=== PATIENT | female | born 1935 | race Caucasian/White ===

== ENCOUNTER → 2017-03-03 | Outpatient (CLI) | payer MEDICARE ==
--- NOTE | 2017-03-03 16:13 | REP ---
RIGHT HIP, TWO VIEWS: HISTORY: Right leg pain. COMPARISON: 11/11/2012 There is no acute fracture or dislocation. There is narrowing of the joint space. Calcifications are present lateral to the greater trochanter. This represents ligamentous or tendon calcification. IMPRESSION: Degenerative change as described above.
--- NOTE | 2017-03-03 16:25 | REP ---
LUMBAR SPINE, EIGHT VIEWS: HISTORY: Right leg pain. There is no acute fracture. The intervertebral discs are decreased in height. Vacuum phenomenon is present at the L2-3, L3-4 and L5-S1 levels. These findings are consistent with disc degeneration. Osteophytes are present throughout the lumbar spine. There is narrowing of the lumbar facet joints. There are 8 mm of grade 1 spondylolisthesis of L5 on S1. This is unchanged with flexion and extension. IMPRESSION: Degenerative change as described above.
== END ==
LOC: M CLY 14:35
PROVIDERS: ATTEND Family Medicine
DX: M25.78 Osteophyte, vertebrae (principal); M51.36 Other intervertebral disc degeneration, lumbar region; M16.11 Unilateral primary osteoarthritis, right hip

== ENCOUNTER → 2017-03-03 | Outpatient (REF) | payer MEDICARE ==
[2017-03-04 12:02] LABS: ALBUMIN 3.8 GM/DL (3.2-5.2); ALBUMIN/GLOBULIN RATIO 1.19 (1.00-1.93); ALKALINE PHOSPHATASE 24 U/L (45-117); ALT/SGPT 23 U/L (12-78); ANION GAP 5 MEQ/L (8-16); AST/SGOT 17 U/L (15-37); BILIRUBIN,TOTAL 0.5 MG/DL (0.2-1.0); BLOOD UREA NITROGEN 18 MG/DL (7-18); CARBON DIOXIDE LEVEL 30 MEQ/L (21-32); CHLORIDE LEVEL 103 MEQ/L (98-107); CREATININE FOR GFR 0.66 MG/DL (0.55-1.02); GLOMERULAR FILTRATION RATE > 60.0 (>32); GLUCOSE, FASTING 77 MG/DL (83-110); POTASSIUM SERUM 4.1 MEQ/L (3.5-5.1); SODIUM LEVEL 138 MEQ/L (136-145)
[2017-03-04 14:24] LABS: MEAN CORPUSCULAR HEMOGLOBIN 54.2 pg (27.0-33.0); WHITE BLOOD COUNT 4.8 K/mm3 (4.0-10.0)
[2017-03-04 14:25] LABS: RED CELL DISTRIBUTION WIDTH 24.9 % (11.5-14.5)
[2017-03-04 14:33] LABS: MEAN CORPUSCULAR HGB CONC 53.4 g/dl (32.0-36.5)
[2017-03-04 14:34] LABS: MEAN CORPUSCULAR VOLUME 101.3 fl (80.0-96.0)
== END ==
LOC: M SFHCCLAY 14:05
PROVIDERS: ATTEND Family Medicine
DX: M79.604 Pain in right leg (principal)

== ENCOUNTER → 2017-03-05 | Outpatient (REF) | payer MEDICARE | LOC: M SFHCCLAY 12:46 | PROVIDERS: ATTEND Family Medicine | DX: R04.0 Epistaxis (principal); G47.33 Obstructive sleep apnea (adult) (pediatric); I10 Essential (primary) hypertension; M79.604 Pain in right leg ==

== ENCOUNTER → 2017-03-25 | Outpatient (REF) | payer MEDICARE ==
[2017-03-25 17:15] LABS: FOLATE > 24.0 NG/ML (>5.4); VITAMIN B12 LEVEL 637 PG/ML (247-911)
[2017-03-25 18:59] LABS: RETIC HEMOGLOBIN CONTENT CHr 38.9 PG (24-36); RETICULOCYTE % ADVIA2120 4.2 % (0.5-1.5)
== END ==
LOC: M SFHCCLAY 11:23
PROVIDERS: ATTEND Family Medicine
DX: D53.9 Nutritional anemia, unspecified (principal)

== ENCOUNTER → 2017-04-13 | Outpatient (CLI) | payer MEDICARE ==
--- NOTE | 2017-04-13 16:04 | REP ---
MR BRAIN WITHOUT CONTRAST: HISTORY: Infarction. Areas of increased signal intensity on T2 weighted images are present in the periventricular and subcortical white matter and omar. This represents small vessel ischemic disease. Several punctate areas of decreased signal intensity on T2 gradient echo images are present in the frontal lobes. 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 There is no acute intraparenchymal hemorrhage, infarct mass, or midline shift. The ventricular system and cortical sulci are dilated consistent with mild volume loss. There is no extracerebral collection. The sinuses are clear. IMPRESSION:1. Small vessel ischemic disease. 2. Mild volume loss. Signed by Gilbert Jeffries MD 04/13/2017 04:15 P
== END ==
LOC: M RAD 14:41
PROVIDERS: ATTEND Family Medicine
DX: I63.9 Cerebral infarction, unspecified (principal); I25.9 Chronic ischemic heart disease, unspecified

== ENCOUNTER → 2017-05-21 | Outpatient (REF) | payer MEDICARE | LOC: M SFHCCLAY 11:46 | PROVIDERS: ATTEND Nurse Practitioner Family | DX: N39.0 Urinary tract infection, site not specified (principal) ==

== ENCOUNTER → 2017-06-17 | Outpatient (REF) | payer MEDICARE ==
[2017-06-17 19:17] LABS: ALBUMIN/GLOBULIN RATIO 1.25 (1.00-1.93); ALKALINE PHOSPHATASE 24 U/L (45-117); ALT/SGPT 30 U/L (12-78); ANION GAP 7 MEQ/L (8-16); AST/SGOT 21 U/L (15-37); BILIRUBIN,TOTAL 0.6 MG/DL (0.2-1.0); BLOOD UREA NITROGEN 17 MG/DL (7-18); CALCIUM LEVEL 9.4 MG/DL (8.8-10.2); CARBON DIOXIDE LEVEL 30 MEQ/L (21-32); CHLORIDE LEVEL 104 MEQ/L (98-107); CREATININE FOR GFR 0.61 MG/DL (0.55-1.02); GLOMERULAR FILTRATION RATE > 60.0 (>32); GLUCOSE, FASTING 92 MG/DL (83-110); POTASSIUM SERUM 3.9 MEQ/L (3.5-5.1); SODIUM LEVEL 141 MEQ/L (136-145); TOTAL PROTEIN 7.2 GM/DL (6.4-8.2)
[2017-06-17 19:18] LABS: FOLATE > 24.0 NG/ML (>5.4); VITAMIN B12 LEVEL 703 PG/ML (247-911)
[2017-06-17 21:18] LABS: WHITE BLOOD COUNT 5.2 K/mm3 (4.0-10.0)
[2017-06-17 21:19] LABS: MEAN CORPUSCULAR HEMOGLOBIN 31.5 pg (27.0-33.0); MEAN CORPUSCULAR HGB CONC 32.3 g/dl (32.0-36.5); MEAN CORPUSCULAR VOLUME 97.7 fl (80.0-96.0); RED CELL DISTRIBUTION WIDTH 14.2 % (11.5-14.5)
[2017-06-21 00:06] LABS: Lyme Disease IgG/IgM Antibodie <0.91 ISR (0.00-0.90); Lyme Disease IgM Ab Quantitati <0.80 index (0.00-0.79)
== END ==
LOC: M SFHCCLAY 12:22
PROVIDERS: ATTEND Family Medicine
DX: G50.0 Trigeminal neuralgia (principal); D75.89 Other specified diseases of blood and blood-forming organs

== ENCOUNTER → 2017-06-29 | Outpatient (REF) | payer MEDICARE ==
[2017-06-29 22:02] LABS: T UPTAKE 35 % (30-39); THYROXINE (T4) 8.1 UG/DL (4.5-12.0); TOTAL PROTEIN 6.8 GM/DL (6.4-8.2)
[2017-06-30 12:54] LABS: ALBUMIN 4.04 GM/DL (3.29-5.55); ALBUMIN % 59.4 % (55.8-66.1); GAMMA GLOBULIN % 13.6 % (11.1-18.8)
[2017-07-03 08:24] LABS: VITAMIN E LEVEL 15.7 mg/L (6.5-21.5)
== END ==
LOC: M LABDRAWC 16:31
PROVIDERS: ATTEND Psychiatry & Neurology Neurology
DX: R20.2 Paresthesia of skin (principal); Z13.1 Encounter for screening for diabetes mellitus

== ENCOUNTER → 2018-02-04 | Outpatient (REF) | payer MEDICARE | LOC: M SFHCCLAY 10:38 | DX: N39.0 Urinary tract infection, site not specified (principal) | CPT/HCPCS: 87186 ==

== ENCOUNTER → 2018-02-22 | Outpatient (REF) | payer MEDICARE ==
[2018-02-22 12:14] LABS: ALBUMIN 3.8 GM/DL (3.2-5.2); ALBUMIN/GLOBULIN RATIO 1.23 (1.00-1.93); ALKALINE PHOSPHATASE 23 U/L (45-117); ALT/SGPT 22 U/L (12-78); ANION GAP 6 MEQ/L (8-16); AST/SGOT 18 U/L (7-37); BILIRUBIN,TOTAL 0.6 MG/DL (0.2-1.0); BLOOD UREA NITROGEN 26 MG/DL (7-18); CALCIUM LEVEL 9.2 MG/DL (8.8-10.2); CARBON DIOXIDE LEVEL 31 MEQ/L (21-32); CHLORIDE LEVEL 106 MEQ/L (98-107); CREATININE FOR GFR 0.73 MG/DL (0.55-1.30); GLOMERULAR FILTRATION RATE > 60.0 (>32); GLUCOSE, FASTING 87 MG/DL (70-100); MAGNESIUM LEVEL 2.3 MG/DL (1.8-2.4); POTASSIUM SERUM 4.1 MEQ/L (3.5-5.1); SODIUM LEVEL 143 MEQ/L (136-145); TOTAL PROTEIN 6.9 GM/DL (6.4-8.2)
[2018-02-22 12:28] LABS: HEMATOCRIT 34.1 % (36.0-47.0); MEAN CORPUSCULAR HEMOGLOBIN 30.9 pg (27.0-33.0); MEAN CORPUSCULAR HGB CONC 32.3 g/dl (32.0-36.5); MEAN CORPUSCULAR VOLUME 95.8 fl (80.0-96.0); PLATELET COUNT, AUTOMATED 222 10^3/uL (150-450); RED BLOOD COUNT 3.56 10^6/uL (4.00-5.40); RED CELL DISTRIBUTION WIDTH 13.8 % (11.5-14.5); WHITE BLOOD COUNT 5.4 10^3/uL (4.0-10.0)
[2018-02-26 00:10] LABS: VITAMIN B6,PYRIDOXAL PHOSPHATE 44.9 ug/L (2.0-32.8)
== END ==
LOC: M SFHCCLAY 09:42
DX: I10 Essential (primary) hypertension (principal); G63 Polyneuropathy in diseases classified elsewhere; E53.8 Deficiency of other specified B group vitamins; I47.1 Supraventricular tachycardia
CPT/HCPCS: 83735

== ENCOUNTER → 2018-04-20 | Outpatient (REF) | payer MEDICARE | LOC: M SFHCCLAY 14:35 | DX: R00.2 Palpitations (principal); Z53.8 Procedure and treatment not carried out for other reasons ==

== ENCOUNTER → 2018-04-23 | Outpatient (REF) | payer MEDICARE ==
[2018-04-23 12:07] LABS: FREE T4 0.92 NG/DL (0.76-1.46)
== END ==
LOC: M SFHCCLAY 09:47
DX: R00.2 Palpitations (principal)
CPT/HCPCS: 84443

== ENCOUNTER → 2018-07-07 | Outpatient (REF) | payer MEDICARE ==
[2018-07-07 12:52] LABS: BASO # 0.1 10^3/uL (0.0-0.2); BASO % 1.3 % (0.0-1.0); EOS # 0.4 10^3/uL (0.0-0.50); EOS % 5.8 % (0.0-3.0); HEMATOCRIT 34.9 % (36.0-47.0); HEMOGLOBIN 11.6 g/dl (12.0-15.5); IMMATURE GRANULOCYTE % 0.3 % (0-3.0); LYMPH # 1.9 10^3/uL (1.5-4.5); LYMPH % 30.5 % (24.0-44.0); MEAN CORPUSCULAR HEMOGLOBIN 31.4 pg (27.0-33.0); MEAN CORPUSCULAR HGB CONC 33.2 g/dl (32.0-36.5); MEAN CORPUSCULAR VOLUME 94.6 fl (80.0-96.0); MONO # 0.6 10^3/uL (0.0-0.8); MONO % 9.6 % (0.0-5.0); NEUTROPHILS # 3.2 10^3/uL (1.8-7.7); NEUTROPHILS % 52.5 % (36.0-66.0); PLATELET COUNT, AUTOMATED 200 10^3/uL (150-450); RED BLOOD COUNT 3.69 10^6/uL (4.00-5.40); RED CELL DISTRIBUTION WIDTH 14.3 % (11.5-14.5); WHITE BLOOD COUNT 6.1 10^3/uL (4.0-10.0)
[2018-07-07 13:26] LABS: ALBUMIN 3.6 GM/DL (3.2-5.2); ALBUMIN/GLOBULIN RATIO 1.06 (1.00-1.93); ALKALINE PHOSPHATASE 24 U/L (45-117); ALT/SGPT 22 U/L (12-78); ANION GAP 10 MEQ/L (8-16); AST/SGOT 21 U/L (7-37); BILIRUBIN,TOTAL 0.7 MG/DL (0.2-1.0); BLOOD UREA NITROGEN 17 MG/DL (7-18); CALCIUM LEVEL 8.9 MG/DL (8.8-10.2); CARBON DIOXIDE LEVEL 27 MEQ/L (21-32); CHLORIDE LEVEL 105 MEQ/L (98-107); CREATININE FOR GFR 0.74 MG/DL (0.55-1.30); GLOMERULAR FILTRATION RATE > 60.0 (>32); GLUCOSE, FASTING 90 MG/DL (70-100); POTASSIUM SERUM 3.8 MEQ/L (3.5-5.1); SODIUM LEVEL 142 MEQ/L (136-145)
== END ==
LOC: M SFHCCLAY 09:22
DX: D64.9 Anemia, unspecified (principal); I47.1 Supraventricular tachycardia; E83.42 Hypomagnesemia
CPT/HCPCS: 83735

== ENCOUNTER → 2018-09-01 | Outpatient (REF) | payer MEDICARE ==
[2018-09-01 17:01] LABS: APPEARANCE, URINE CLEAR (CLEAR); BACTERIA, URINE AUTO NEGATIVE (NEGATIVE); BILIRUBIN, URINE AUTO NEGATIVE (NEGATIVE); BLOOD, URINE BLOOD NEGATIVE (NEGATIVE); COLOR, URINE YELLOW (YELLOW); GLUCOSE, URINE (UA) AUTO NEGATIVE (NEGATIVE); KETONE, URINE AUTO NEGATIVE (NEGATIVE); LEUKOCYTE ESTERASE, URINE AUTO 2+ (NEGATIVE); MUCUS, URINE SMALL (NEGATIVE); NITRITE, URINE AUTO NEGATIVE (NEGATIVE); PROTEIN, URINE AUTO NEGATIVE (NEGATIVE); RBC, URINE AUTO 6 /HPF (0-3); SPECIFIC GRAVITY URINE AUTO 1.029 (1.002-1.035); SQUAMOUS EPITHELIAL CELL UR AU 1 /HPF (0-6); WBC, URINE AUTO 3 /HPF (0-3)
== END ==
LOC: M LAB REF 16:06
DX: N39.46 Mixed incontinence (principal); R35.0 Frequency of micturition
CPT/HCPCS: 81001

== ENCOUNTER → 2019-02-17 | Outpatient (REF) | payer MEDICARE ==
[2019-02-17 17:13] LABS: BLOOD UREA NITROGEN 23 MG/DL (7-18); CALCIUM LEVEL 9.8 MG/DL (8.8-10.2); CARBON DIOXIDE LEVEL 29 MEQ/L (21-32); CHLORIDE LEVEL 106 MEQ/L (98-107); CHOLESTEROL LEVEL 159 MG/DL (<200); CHOLESTEROL RISK RATIO 1.786 (<5); CREATININE FOR GFR 0.79 MG/DL (0.55-1.30); GLOMERULAR FILTRATION RATE > 60.0 (>32); GLUCOSE, FASTING 92 MG/DL (70-100); HDL CHOLESTEROL 89 MG/DL (>40); LDL CHOLESTEROL 59 MG/DL (<100); NON-HDL-C 70 MG/DL; POTASSIUM SERUM 3.6 MEQ/L (3.5-5.1); SODIUM LEVEL 142 MEQ/L (136-145); TRIGLYCERIDES LEVEL 53 MG/DL (<150)
[2019-02-17 17:42] LABS: BASO # 0.1 10^3/uL (0.0-0.2); BASO % 1.5 % (0.0-1.0); EOS # 0.4 10^3/uL (0.0-0.50); EOS % 6.9 % (0.0-3.0); HEMATOCRIT 36.2 % (36.0-47.0); HEMOGLOBIN 11.9 g/dl (12.0-15.5); LYMPH # 2.1 10^3/uL (1.5-4.5); LYMPH % 39.3 % (24.0-44.0); MEAN CORPUSCULAR VOLUME 97.3 fl (80.0-96.0); MONO # 0.5 10^3/uL (0.0-0.8); NEUTROPHILS # 2.3 10^3/uL (1.8-7.7); NEUTROPHILS % 43.1 % (36.0-66.0); PLATELET COUNT, AUTOMATED 214 10^3/uL (150-450); RED BLOOD COUNT 3.72 10^6/uL (4.00-5.40); WHITE BLOOD COUNT 5.3 10^3/uL (4.0-10.0)
[2019-02-17 17:46] LABS: MEAN CORPUSCULAR HGB CONC 32.9 g/dl (32.0-36.5)
== END ==
LOC: M SFHCCLAY 10:23
PROVIDERS: ATTEND Family Medicine
DX: E78.6 Lipoprotein deficiency (principal); I10 Essential (primary) hypertension; E83.42 Hypomagnesemia; D64.9 Anemia, unspecified

== ENCOUNTER → 2019-07-20 | Outpatient (REF) | payer MEDICARE ==
[2019-07-20 16:55] LABS: ALBUMIN 3.8 GM/DL (3.2-5.2); ALT/SGPT 20 U/L (12-78); BILIRUBIN,TOTAL 0.6 MG/DL (0.2-1.0); BLOOD UREA NITROGEN 18 MG/DL (7-18); CALCIUM LEVEL 9.5 MG/DL (8.8-10.2); CARBON DIOXIDE LEVEL 31 MEQ/L (21-32); CHLORIDE LEVEL 102 MEQ/L (98-107); CREATININE FOR GFR 0.72 MG/DL (0.55-1.30); GLOMERULAR FILTRATION RATE > 60.0 (>32); GLUCOSE, FASTING 90 MG/DL (70-100); POTASSIUM SERUM 3.8 MEQ/L (3.5-5.1); SODIUM LEVEL 139 MEQ/L (136-145)
[2019-07-20 17:58] LABS: BASO # 0.1 10^3/uL (0.0-0.2); BASO % 1.1 % (0.0-1.0); EOS # 0.4 10^3/uL (0.0-0.5); EOS % 5.7 % (0.0-3.0); HEMATOCRIT 36.1 % (36.0-47.0); HEMOGLOBIN 11.7 g/dl (12.0-15.5); LYMPH # 1.8 10^3/uL (1.5-5.0); LYMPH % 27.9 % (24.0-44.0); MEAN CORPUSCULAR HEMOGLOBIN 31.5 pg (27.0-33.0); MEAN CORPUSCULAR HGB CONC 32.4 g/dl (32.0-36.5); MONO # 0.6 10^3/uL (0.0-0.8); NEUTROPHILS # 3.7 10^3/uL (1.5-8.5); PLATELET COUNT, AUTOMATED 204 10^3/uL (150-450); RED BLOOD COUNT 3.72 10^6/uL (4.00-5.40); WHITE BLOOD COUNT 6.5 10^3/uL (4.0-10.0)
== END ==
LOC: M SFHCCLAY 11:43
PROVIDERS: ATTEND Family Medicine
DX: D75.89 Other specified diseases of blood and blood-forming organs (principal); I47.1 Supraventricular tachycardia

== ENCOUNTER → 2019-09-27 | Outpatient (REF) | payer MEDICARE ==
[2019-09-27 13:29] LABS: HEMATOCRIT 35.3 % (36.0-47.0); HEMOGLOBIN 11.2 g/dl (12.0-15.5); MEAN CORPUSCULAR HEMOGLOBIN 31.1 pg (27.0-33.0); MEAN CORPUSCULAR HGB CONC 31.7 g/dl (32.0-36.5); MEAN CORPUSCULAR VOLUME 98.1 fl (80.0-96.0); PLATELET COUNT, AUTOMATED 186 10^3/uL (150-450); WHITE BLOOD COUNT 5.8 10^3/uL (4.0-10.0)
== END ==
LOC: M LABDRAWC 12:01 → M LRY 12:01
PROVIDERS: ATTEND Physician Assistant
DX: I48.0 Paroxysmal atrial fibrillation (principal)

== ENCOUNTER → 2020-03-07 | Outpatient (REF) | payer MEDICARE ==
[2020-03-07 12:40] LABS: ALBUMIN 3.5 GM/DL (3.2-5.2); ALT/SGPT 21 U/L (12-78); BILIRUBIN,TOTAL 0.4 MG/DL (0.2-1.0); BLOOD UREA NITROGEN 22 MG/DL (7-18); CALCIUM LEVEL 8.9 MG/DL (8.8-10.2); CARBON DIOXIDE LEVEL 29 MEQ/L (21-32); CHLORIDE LEVEL 108 MEQ/L (98-107); CHOLESTEROL LEVEL 133 MG/DL (<200); CHOLESTEROL RISK RATIO 1.477 (<5); CREATININE FOR GFR 0.69 MG/DL (0.55-1.30); FREE T3 2.6 PG/ML (2.2-4.0); FREE T4 0.93 NG/DL (0.76-1.46); GLOMERULAR FILTRATION RATE > 60.0 (>32); GLUCOSE, FASTING 92 MG/DL (70-100); HDL CHOLESTEROL 90 MG/DL (>40); LDL CHOLESTEROL 36 MG/DL (<100); NON-HDL-C 43 MG/DL; POTASSIUM SERUM 4.4 MEQ/L (3.5-5.1); SODIUM LEVEL 143 MEQ/L (136-145); TOTAL PROTEIN 6.8 GM/DL (6.4-8.2); TRIGLYCERIDES LEVEL 37 MG/DL (<150)
== END ==
LOC: M SFHCCLAY 09:14
PROVIDERS: ATTEND Family Medicine
DX: G47.33 Obstructive sleep apnea (adult) (pediatric) (principal); I10 Essential (primary) hypertension; I48.0 Paroxysmal atrial fibrillation

== ENCOUNTER → 2021-01-17 | Outpatient (REF) | payer MEDICARE ==
[2021-01-17 18:23] LABS: BASO # 0.1 10^3/uL (0.0-0.2); BASO % 1.1 % (0.0-1.0); EOS # 0.3 10^3/uL (0.0-0.5); HEMATOCRIT 35.3 % (36.0-47.0); HEMOGLOBIN 11.4 g/dl (12.0-15.5); LYMPH % 30.4 % (24.0-44.0); MEAN CORPUSCULAR HEMOGLOBIN 31.8 pg (27.0-33.0); MEAN CORPUSCULAR HGB CONC 32.3 g/dl (32.0-36.5); MEAN CORPUSCULAR VOLUME 98.6 fl (80.0-96.0); MONO # 0.7 10^3/uL (0.0-0.8); NEUTROPHILS # 3.5 10^3/uL (1.5-8.5); NEUTROPHILS % 53.2 % (36.0-66.0); PLATELET COUNT, AUTOMATED 199 10^3/uL (150-450); RED BLOOD COUNT 3.58 10^6/uL (4.00-5.40)
[2021-01-17 18:33] LABS: WHITE BLOOD COUNT 6.6 10^3/uL (4.0-10.0)
[2021-01-17 20:34] LABS: BLOOD UREA NITROGEN 25 MG/DL (7-18); CALCIUM LEVEL 9.3 MG/DL (8.8-10.2); CARBON DIOXIDE LEVEL 30 MEQ/L (21-32); CHLORIDE LEVEL 107 MEQ/L (98-107); CREATININE FOR GFR 0.76 MG/DL (0.55-1.30); GLOMERULAR FILTRATION RATE > 60.0 (>32); GLUCOSE, FASTING 89 MG/DL (70-100); LDH LACTATE DEHYDROGENASE 198 U/L (84-246); POTASSIUM SERUM 4.3 MEQ/L (3.5-5.1); SODIUM LEVEL 142 MEQ/L (136-145)
== END ==
LOC: M SFHCCLAY 13:49
PROVIDERS: ATTEND Family Medicine
DX: D53.9 Nutritional anemia, unspecified (principal); I10 Essential (primary) hypertension; I48.91 Unspecified atrial fibrillation

== ENCOUNTER → 2021-04-24 | Outpatient (REF) | payer MEDICARE | LOC: M SFHCCLAY 14:11 | PROVIDERS: ATTEND Physician Assistant | DX: N39.0 Urinary tract infection, site not specified (principal) ==

== ENCOUNTER → 2021-06-25 | Outpatient (CLI) | payer MEDICARE ==
--- NOTE | 2021-06-25 11:39 | REP ---
INDICATION: SCIATICA RT SIDE COMPARISON: 03/03/2017. TECHNIQUE: Two views right hip. FINDINGS: There is no evidence of acute fracture, dislocation, or intrinsic bone disease.There is stable moderate degenerative change at the hip joint, with joint space narrowing, subchondral sclerosis and spurring. IMPRESSION: Stable moderate degenerative changes right hip joint. <Electronically signed by Phillip Dale > 06/25/21 [id number]
--- NOTE | 2021-06-25 12:09 | REP ---
INDICATION: SCIATICA RT SIDE. COMPARISON: 03/03/2017. TECHNIQUE: Five views lumbosacral spine. FINDINGS: There is no acute compression fracture. There is stable minimal retrolisthesis of L2 on L3 and anterolisthesis of L4 on L5 and L5 on S1. There is moderate diffuse spurring. There is moderate disc space narrowing at all levels with subchondral sclerosis, and vacuum phenomenon at L2-3 and L5-S1. Sclerosis and spurring is seen at the posterior facet joints. Posterior elements are intact. There is mild curvature toward the right. IMPRESSION: Stable degenerative changes as discussed above. <Electronically signed by Phillip Dale > 06/25/21 [id number]
== END ==
LOC: M CLY 10:44
PROVIDERS: ATTEND Family Medicine
DX: M54.31 Sciatica, right side (principal); M16.11 Unilateral primary osteoarthritis, right hip; M46.06 Spinal enthesopathy, lumbar region; M51.37 Other intervertebral disc degeneration, lumbosacral region

== ENCOUNTER → 2021-09-02 | Outpatient (REF) | payer MEDICARE ==
[2021-09-02 16:42] LABS: HEMATOCRIT 36.6 % (36.0-47.0); HEMOGLOBIN 11.7 g/dl (12.0-15.5); MEAN CORPUSCULAR HEMOGLOBIN 30.6 pg (27.0-33.0); MEAN CORPUSCULAR VOLUME 95.8 fl (80.0-96.0); PLATELET COUNT, AUTOMATED 263 10^3/uL (150-450); RED BLOOD COUNT 3.82 10^6/uL (4.00-5.40); WHITE BLOOD COUNT 6.6 10^3/uL (4.0-10.0)
[2021-09-02 16:46] LABS: ALBUMIN 3.5 GM/DL (3.2-5.2); ALT/SGPT 19 U/L (12-78); BILIRUBIN,TOTAL 0.5 MG/DL (0.2-1.0); BLOOD UREA NITROGEN 20 MG/DL (7-18); CALCIUM LEVEL 9.3 MG/DL (8.8-10.2); CARBON DIOXIDE LEVEL 31 MEQ/L (21-32); CHLORIDE LEVEL 109 MEQ/L (98-107); CREATININE FOR GFR 0.77 MG/DL (0.55-1.30); GLOMERULAR FILTRATION RATE > 60.0 (>32); GLUCOSE, FASTING 95 MG/DL (70-100); POTASSIUM SERUM 4.1 MEQ/L (3.5-5.1); SODIUM LEVEL 145 MEQ/L (136-145); TOTAL PROTEIN 6.7 GM/DL (6.4-8.2)
== END ==
LOC: M SFHCCLAY 10:00
PROVIDERS: ATTEND Family Medicine
DX: M11.20 Other chondrocalcinosis, unspecified site (principal); I10 Essential (primary) hypertension

== ENCOUNTER → 2022-04-04 | Outpatient (REF) | payer MEDICARE ==
[2022-04-04 18:45] LABS: BLOOD UREA NITROGEN 20 MG/DL (7-18); CALCIUM LEVEL 9.6 MG/DL (8.8-10.2); CARBON DIOXIDE LEVEL 34 MEQ/L (21-32); CHLORIDE LEVEL 105 MEQ/L (98-107); CREATININE FOR GFR 0.86 MG/DL (0.55-1.30); GLOMERULAR FILTRATION RATE > 60.0 (>32); GLUCOSE, FASTING 95 MG/DL (70-100); HEMOGLOBIN 10.6 g/dl (12.0-15.5); MEAN CORPUSCULAR HEMOGLOBIN 30.9 pg (27.0-33.0); MEAN CORPUSCULAR HGB CONC 32.1 g/dl (32.0-36.5); MEAN CORPUSCULAR VOLUME 96.2 fl (80.0-96.0); PLATELET COUNT, AUTOMATED 305 10^3/uL (150-450); POTASSIUM SERUM 4.3 MEQ/L (3.5-5.1); RED BLOOD COUNT 3.43 10^6/uL (4.00-5.40); SODIUM LEVEL 141 MEQ/L (136-145); WHITE BLOOD COUNT 6.3 10^3/uL (4.0-10.0)
== END ==
LOC: M SFHCCLAY 14:03
PROVIDERS: ATTEND Family Medicine
DX: E87.1 Hypo-osmolality and hyponatremia (principal); I47.1 Supraventricular tachycardia; I10 Essential (primary) hypertension

== ENCOUNTER → 2022-04-05 | Outpatient (REF) | payer MEDICARE | LOC: M SFHCCLAY 09:18 | PROVIDERS: ATTEND Family Medicine | DX: D64.9 Anemia, unspecified (principal); Z53.9 Procedure and treatment not carried out, unspecified reason ==

== ENCOUNTER → 2022-09-17 | Outpatient (REF) | payer MEDICARE | LOC: M SFHCPLAZ 10:48 | PROVIDERS: ATTEND Family Medicine | DX: N30.90 Cystitis, unspecified without hematuria (principal) ==

== ENCOUNTER → 2023-02-02 | Outpatient (REF) ==
[2023-02-02 12:07] LABS: BLOOD UREA NITROGEN 16 MG/DL (9-23); CARBON DIOXIDE LEVEL 34 MMOL/L (20-31); CHLORIDE LEVEL 102 MMOL/L (98-107); CREATININE FOR GFR 0.69 MG/DL (0.55-1.30); GLOMERULAR FILTRATION RATE > 60.0 (>32); GLUCOSE, FASTING 102 MG/DL (74-106); POTASSIUM SERUM 3.5 MMOL/L (3.5-5.1); SODIUM LEVEL 141 MMOL/L (136-145)
[2023-02-02 12:34] LABS: HEMATOCRIT 36.1 % (36.0-47.0); HEMOGLOBIN 11.7 g/dl (12.0-15.5); MEAN CORPUSCULAR HGB CONC 32.4 g/dl (32.0-36.5); MEAN CORPUSCULAR VOLUME 95.5 fl (80.0-96.0); PLATELET COUNT, AUTOMATED 329 10^3/uL (150-450); RED BLOOD COUNT 3.78 10^6/uL (4.00-5.40); WHITE BLOOD COUNT 7.3 10^3/uL (4.0-10.0)
== END ==
PROVIDERS: ATTEND Physician Assistant
DX: S72.90XD Unspecified fracture of unspecified femur, subsequent encounter for closed fracture with routine healing (principal)

== ENCOUNTER → 2023-02-09 | Outpatient (REF) ==
[2023-02-09 11:46] LABS: BLOOD UREA NITROGEN 12 MG/DL (9-23); CARBON DIOXIDE LEVEL 30 MMOL/L (20-31); CHLORIDE LEVEL 103 MMOL/L (98-107); CREATININE FOR GFR 0.63 MG/DL (0.55-1.30); GLOMERULAR FILTRATION RATE > 60.0 (>32); GLUCOSE, FASTING 100 MG/DL (74-106); POTASSIUM SERUM 3.1 MMOL/L (3.5-5.1); SODIUM LEVEL 138 MMOL/L (136-145)
[2023-02-09 12:23] LABS: HEMATOCRIT 35.7 % (36.0-47.0); HEMOGLOBIN 11.5 g/dl (12.0-15.5); MEAN CORPUSCULAR HEMOGLOBIN 30.8 pg (27.0-33.0); MEAN CORPUSCULAR HGB CONC 32.2 g/dl (32.0-36.5); MEAN CORPUSCULAR VOLUME 95.7 fl (80.0-96.0); PLATELET COUNT, AUTOMATED 274 10^3/uL (150-450); RED BLOOD COUNT 3.73 10^6/uL (4.00-5.40); WHITE BLOOD COUNT 6.8 10^3/uL (4.0-10.0)
== END ==
PROVIDERS: ATTEND Physician Assistant
DX: S72.009D Fracture of unspecified part of neck of unspecified femur, subsequent encounter for closed fracture with routine healing (principal)

== ENCOUNTER → 2023-02-16 | Outpatient (REF) ==
[2023-02-16 11:14] LABS: BLOOD UREA NITROGEN 13 MG/DL (9-23); CALCIUM LEVEL 8.6 MG/DL (8.3-10.6); CARBON DIOXIDE LEVEL 26 MMOL/L (20-31); CHLORIDE LEVEL 105 MMOL/L (98-107); CREATININE FOR GFR 0.58 MG/DL (0.55-1.30); GLOMERULAR FILTRATION RATE > 60.0 (>32); GLUCOSE, FASTING 163 MG/DL (74-106); SODIUM LEVEL 140 MMOL/L (136-145)
== END ==
PROVIDERS: ATTEND Physician Assistant
DX: N18.9 Chronic kidney disease, unspecified (principal)

== ENCOUNTER → 2023-02-18 | Outpatient (REF) | PROVIDERS: ATTEND Physician Assistant | DX: E87.6 Hypokalemia (principal) ==

== ENCOUNTER → 2023-02-25 | Outpatient (REF) | PROVIDERS: ATTEND Physician Assistant | DX: E87.6 Hypokalemia (principal) ==

== ENCOUNTER → 2023-03-11 | Outpatient (REF) ==
[2023-03-11 11:42] LABS: BLOOD UREA NITROGEN 16 MG/DL (9-23); CALCIUM LEVEL 8.7 MG/DL (8.3-10.6); CARBON DIOXIDE LEVEL 28 MMOL/L (20-31); CHLORIDE LEVEL 106 MMOL/L (98-107); CREATININE FOR GFR 0.55 MG/DL (0.55-1.30); GLOMERULAR FILTRATION RATE > 60.0 (>32); GLUCOSE, FASTING 127 MG/DL (74-106); POTASSIUM SERUM 3.4 MMOL/L (3.5-5.1); SODIUM LEVEL 141 MMOL/L (136-145)
[2023-03-11 12:26] LABS: HEMATOCRIT 34.2 % (36.0-47.0); MEAN CORPUSCULAR HEMOGLOBIN 31.3 pg (27.0-33.0); MEAN CORPUSCULAR HGB CONC 32.2 g/dl (32.0-36.5); MEAN CORPUSCULAR VOLUME 97.2 fl (80.0-96.0); PLATELET COUNT, AUTOMATED 276 10^3/uL (150-450); RED BLOOD COUNT 3.52 10^6/uL (4.00-5.40); WHITE BLOOD COUNT 6.4 10^3/uL (4.0-10.0)
== END ==
PROVIDERS: ATTEND Physician Assistant
DX: I10 Essential (primary) hypertension (principal)

== ENCOUNTER → 2023-03-18 | Outpatient (REF) ==
[2023-03-18 12:13] LABS: BLOOD UREA NITROGEN 20 MG/DL (9-23); CALCIUM LEVEL 9.3 MG/DL (8.3-10.6); CARBON DIOXIDE LEVEL 28 MMOL/L (20-31); CHLORIDE LEVEL 105 MMOL/L (98-107); CREATININE FOR GFR 0.63 MG/DL (0.55-1.30); GLOMERULAR FILTRATION RATE > 60.0 (>32); GLUCOSE, FASTING 96 MG/DL (74-106); POTASSIUM SERUM 4.3 MMOL/L (3.5-5.1); SODIUM LEVEL 140 MMOL/L (136-145)
== END ==
PROVIDERS: ATTEND Family Medicine
DX: E87.6 Hypokalemia (principal)

== ENCOUNTER → 2023-04-03 | Outpatient (REF) | payer MEDICARE, BC | PROVIDERS: ATTEND Family Medicine | DX: N39.0 Urinary tract infection, site not specified (principal) ==

== ENCOUNTER → 2023-04-22 | Outpatient (REF) | payer MEDICARE ==
[2023-04-22 10:57] LABS: BLOOD UREA NITROGEN 17 MG/DL (9-23); CALCIUM LEVEL 9.2 MG/DL (8.3-10.6); CARBON DIOXIDE LEVEL 27 MMOL/L (20-31); CHLORIDE LEVEL 105 MMOL/L (98-107); CREATININE FOR GFR 0.53 MG/DL (0.55-1.30); GLOMERULAR FILTRATION RATE > 60.0 (>32); GLUCOSE, FASTING 82 MG/DL (74-106); POTASSIUM SERUM 4.3 MMOL/L (3.5-5.1); SODIUM LEVEL 140 MMOL/L (136-145)
[2023-04-22 11:15] LABS: HEMOGLOBIN 11.7 g/dl (12.0-15.5); MEAN CORPUSCULAR HEMOGLOBIN 31.9 pg (27.0-33.0); MEAN CORPUSCULAR HGB CONC 32.5 g/dl (32.0-36.5); MEAN CORPUSCULAR VOLUME 98.1 fl (80.0-96.0); PLATELET COUNT, AUTOMATED 264 10^3/uL (150-450); RED BLOOD COUNT 3.67 10^6/uL (4.00-5.40); WHITE BLOOD COUNT 7.2 10^3/uL (4.0-10.0)
== END ==
PROVIDERS: ATTEND Family Medicine
DX: S72.90XD Unspecified fracture of unspecified femur, subsequent encounter for closed fracture with routine healing (principal); Z79.899 Other long term (current) drug therapy